=== PATIENT | male | born 1995 | race Hispanic/Latino ===

== ENCOUNTER 2019-02-14 20:58 | Observation (INO) | payer BC ==
[2019-02-14 22:53] LABS: Absolute Lymphocytes (CBC) 1.8 K/uL (0.7-4.9); Absolute Monocytes 0.4 K/uL (0.1-1.3); Absolute Neutrophil 3.6 K/uL (1.8-8.0); Basophils % 0.6 % (0-1.3); Eosinophils % 3.7 % (0-4.4); Hematocrit 43.6 % (39.6-49.0); MPV 7.5 fL (7.6-11.3); Monocytes % 6.8 % (3.3-12.3); RBC Red Blood Cell Count 4.89 M/uL (4.33-5.43)
[2019-02-14] MEDS ORDERED: FAMOTIDINE 20 MG/2 ML VIAL IV ONE (22:53)
[2019-02-14] MEDS ORDERED: NA CHLORIDE 0.9% 1,000 ML ONE (22:53)
[2019-02-14] MEDS ORDERED: ONDANSETRON 4 MG/2 ML VIAL ONE (22:53)
[2019-02-14 23:22] LABS: Urine Blood NEGATIVE (NEG); Urine Glucose NEGATIVE (NEG); Urine Protein NEGATIVE (NEG)
[2019-02-14 23:22] LABS: Urine Bacteria <20 /HPF (NONE SEEN); Urine Culture Reflex Order NOT NEEDED; Urine RBC NONE SEEN /HPF (NONE SEEN)
[2019-02-14 23:25] LABS: Albumin 4.4 g/dL (3.4-5.0); Bilirubin Direct 0.1 mg/dL (0-0.2); Bilirubin Total 0.4 mg/dL (0.2-1.0); Potassium 3.9 mmol/L (3.5-5.1)
[2019-02-15] MEDS ORDERED: KETOROLAC 30 MG/ML INJ ONE (00:11)
--- NOTE | 2019-02-15 01:25 | ER ---
Nurse's Notes [facility] Name: Karan Mccullough Age: 23 yrs Sex: Male : 1995 Arrival Date: 02/14/2019 Time: 21:04 Bed 17 Private MD: Diagnosis: Acute cholecystitis Presentation: 02/14 21:13 Presenting complaint: Patient states: abd pain X1 week. pt denies N/V/D. pt c/o lower ak1 back pain since last night. Transition of care: patient was not received from another setting of care. Onset of symptoms is unknown. Risk Assessment: Do you want to hurt yourself or someone else? Patient reports no desire to harm self or others. Initial Sepsis Screen: Does the patient meet any 2 criteria? No. Patient's initial sepsis screen is negative. Does the patient have a suspected source of infection? No. Patient's initial sepsis screen is negative. Care prior to arrival: None. 21:13 Method Of Arrival: Ambulatory ak1 21:13 Acuity: LUBNA 3 ak1 Triage Assessment: 21:15 General: Appears in no apparent distress. Behavior is calm, cooperative. Pain: ak1 Complains of pain in abdomen. EENT: No signs and/or symptoms were reported regarding the EENT system. Neuro: No deficits noted. Cardiovascular: No deficits noted. Respiratory: No deficits noted. GI: Reports lower abdominal pain, upper abdominal pain, Patient currently denies diarrhea, nausea, vomiting. : No signs and/or symptoms were reported regarding the genitourinary system. Derm: No signs and/or symptoms reported regarding the dermatologic system. Musculoskeletal: No signs and/or symptoms reported regarding the musculoskeletal system. Historical: - Allergies: 21:15 No Known Allergies; ak1 - Home Meds: 21:15 None [Active]; ak1 - PMHx: 21:15 None; ak1 - PSHx: 21:15 None; ak1 - Immunization history:: Adult Immunizations unknown. - Social history:: Smoking status: Patient/guardian denies using tobacco. - Ebola Screening: : No symptoms or risks identified at this time. Screenin:01 Abuse screen: Denies threats or abuse. Denies injuries from another. Nutritional ed1 screening: No deficits noted. Tuberculosis screening: No symptoms or risk factors identified. Fall Risk None identified. Assessment: 22:01 General: Appears in no apparent distress. Behavior is calm, cooperative. Pain: ed1 Complains of pain in abdomen Pain radiates to back Pain currently is 6 out of 10 on a pain scale. Quality of pain is described as aching, Pain began one week ago. Neuro: Level of Consciousness is awake, alert, obeys commands, Oriented to person, place, time, situation. Cardiovascular: Denies chest pain, Heart tones S1 S2 present. Respiratory: Airway is patent Respiratory effort is even, unlabored, Respiratory pattern is regular, symmetrical, Breath sounds are clear bilaterally. GI: Abdomen is non-distended, Bowel sounds present X 4 quads. Abd is soft and non tender X 4 quads. Reports lower abdominal pain, upper abdominal pain, Patient currently denies diarrhea, nausea, vomiting. : No signs and/or symptoms were reported regarding the genitourinary system. EENT: No signs and/or symptoms were reported regarding the EENT system. Derm: Skin is intact, is healthy with good turgor, Skin is dry, Skin is normal, Skin temperature is warm. Musculoskeletal: Circulation, motion, and sensation intact. Range of motion: intact in all extremities. 22:49 Reassessment: Patient appears in no apparent distress at this time. No changes from ed1 previously documented assessment. Patient and/or family updated on plan of care and expected duration. Pain level reassessed. Patient is alert, oriented x 3, equal unlabored respirations, skin warm/dry/pink. Patient states symptoms have not improved. 23:46 Reassessment: Patient appears in no apparent distress at this time. No changes from ed1 previously documented assessment. Patient and/or family updated on plan of care and expected duration. Pain level reassessed. Patient is alert, oriented x 3, equal unlabored respirations, skin warm/dry/pink. Pt reports pain has not gotten any better. Patient states symptoms have not improved. 02/15 01:38 Reassessment: Patient appears in no apparent distress at this time. Patient and/or ed1 family updated on plan of care and expected duration. Pain level reassessed. Patient is alert, oriented x 3, equal unlabored respirations, skin warm/dry/pink. Patient states symptoms have not improved. Vital Signs: 02/14 21:15 BP 127 / 86; Pulse 67; Resp 16; Temp 98.1; Pulse Ox 100% on R/A; Weight 61.23 kg (R); ak1 Height 5 ft. 5 in. (165.10 cm) (R); Pain 6/10; 22:49 BP 122 / 76; Pulse 70; Resp 18; Pulse Ox 100% on R/A; Pain 6/10; ed1 23:46 BP 125 / 73; Pulse 76; Resp 17; Pulse Ox 99% on R/A; Pain 6/10; ed1 02/15 01:38 BP 113 / 78; Pulse 54; Resp 18; Pulse Ox 99% on R/A; Pain 4/10; ed1 02/14 21:15 Body Mass Index 22.46 (61.23 kg, 165.10 cm) ak1 ED Course: 02/14 21:04 Patient arrived in ED. es 21:14 Triage completed. ak1 21:15 Arm band placed on Patient placed in waiting room, Patient notified of wait time. ak1 21:48 Natasha Parekh, RN is Primary Nurse. ed1 21:48 Markel Blount PA is PHCP. cp 21:48 Cameron Cline MD is Attending Physician. cp 22:01 Patient has correct armband on for positive identification. Bed in low position. Call ed1 light in reach. 22:36 Initial lab(s) drawn, by me, sent to lab. Inserted saline lock: 20 gauge in right ed1 antecubital area, using aseptic technique. Blood collected. 23:[address] Scan. ed1 02/15 00:[address] via wheelchair. kw1 01:00 CT Abd/Pelvis - W/Contrast: no oral contrast In Process Unspecified. EDMS 01:23 Hugo Herman MD is Hospitalizing Provider. cp 01:38 No provider procedures requiring assistance completed. Patient admitted, IV remains in ed1 place. intact, No redness/swelling at site. 07:03 Primary Nurse role handed off by Natasha Parekh RN ed1 11:43 Isaac Cordoba RN is Primary Nurse. jl7 Administered Medications: 02/14 22:50 Drug: NS 0.9% 1000 ml Route: IV; Rate: 1 bolus; Site: right antecubital; ed1 02/15 00:03 Follow up: IV Status: Completed infusion; IV Intake: 1000ml ed1 02/14 22:50 Drug: Zofran 4 mg Route: IVP; Site: right antecubital; ed1 02/15 00:04 Follow up: Response: No adverse reaction; Nausea unchanged ed1 02/14 22:50 Drug: Pepcid 20 mg Route: IVP; Site: right antecubital; ed1 02/15 00:04 Follow up: Response: No adverse reaction ed1 00:04 Drug: TORadol 30 mg Route: IVP; Site: right antecubital; ed1 00:34 Follow up: Response: No adverse reaction; Pain is decreased ed1 Intake: 00:03 IV: 1000ml; Total: 1000ml. ed1 Outcome: 01:23 Decision to Hospitalize by Provider. cp 02:00 Admitted to ER Hold. Please see [facility] for further documentation. ed1 02:00 Condition: good 02:00 Discharge instructions given to patient, Instructed on the need for admit, Demonstrated understanding of instructions. 13:26 Patient left the ED. jl7 Signatures: Dispatcher [employer] Liv Betancourt Erika, RN RN ed1 Charmaine Sequeira RN RN ak1 Markel Blount PA PA cp Leal, Jahala, RN RN jl7 Zakia Uribe1 Corrections: (The following items were deleted from the chart) 01:25 02/14 21:13 Acuity: LUBNA 4 ak1 ak1 02/15 01:39 01:38 BP 113 / 78; Pulse 54bpm; Resp 28bpm; Pulse Ox 99% RA; Pain 4/10; ed1 ed1
--- NOTE | 2019-02-15 01:25 | EDPHYS ---
Physician Documentation [facility] Name: Karan Mccullough Age: 23 yrs Sex: Male : 1995 Arrival Date: 02/14/2019 Time: 21:04 Bed 17 Private MD: ED Physician Cameron Cline HPI: 02/14 22:30 This 23 yrs old Male presents to ER via Ambulatory with complaints of cp Abdominal Pain. 22:30 The patient presents with abdominal pain in the epigastric area, in the right upper cp quadrant. Onset: The symptoms/episode began/occurred 1 week(s) ago, and became worse 2 hour(s) ago. The symptoms radiate to back. 22:30 Associated signs and symptoms: Pertinent positives: nausea, Pertinent negatives: blood cp in stools, chest pain, constipation, diarrhea, dysuria, fever, testicular pain, vomiting. The symptoms are described as sharp. 22:30 Modifying factors: the symptoms are aggravated by food, pressure. cp Historical: - Allergies: 21:15 No Known Allergies; ak1 - Home Meds: 21:15 None [Active]; ak1 - PMHx: 21:15 None; ak1 - PSHx: 21:15 None; ak1 - Immunization history:: Adult Immunizations unknown. - Social history:: Smoking status: Patient/guardian denies using tobacco. - Ebola Screening: : No symptoms or risks identified at this time. ROS: 22:35 Constitutional: Negative for body aches, chills, fever, poor PO intake. cp 22:35 Eyes: Negative for injury, pain, redness, and discharge. cp 22:35 ENT: Negative for sore throat, difficulty swallowing, difficulty handling secretions. 22:35 Cardiovascular: Negative for chest pain, palpitations. 22:35 Respiratory: Negative for cough, shortness of breath, wheezing. 22:35 Abdomen/GI: Positive for abdominal pain, Negative for vomiting, diarrhea, constipation, anorexia, black/tarry stool, rectal bleeding. 22:35 Back: Positive for radiated pain. 22:35 : Negative for urinary symptoms, testicular pain 22:35 Skin: Negative for cellulitis, rash. 22:35 Neuro: Negative for altered mental status, headache, weakness. 22:35 All other systems are negative. Exam: 22:42 Constitutional: The patient appears in no acute distress, alert, awake, non-toxic, well cp developed, well nourished. 22:42 Head/Face: Normocephalic, atraumatic. cp 22:42 Eyes: Periorbital structures: appear normal, Conjunctiva: normal, no exudate, no injection, Sclera: no appreciated abnormality, Lids and lashes: appear normal, bilaterally. 22:42 ENT: External ear(s): are unremarkable, Nose: is normal, Mouth: Lips: moist, Oral mucosa: pink and intact, moist, Posterior pharynx: Airway: no evidence of obstruction, patent, Tonsils: are normal in appearance, swelling, is not appreciated, erythema, is not appreciated, exudate, is not appreciated. 22:42 Chest/axilla: Inspection: normal, Palpation: is normal, no crepitus, no tenderness. 22:42 Cardiovascular: Rate: normal, Rhythm: regular. 22:42 Respiratory: the patient does not display signs of respiratory distress, Respirations: normal, no use of accessory muscles, no retractions, no splinting, no tachypnea, labored breathing, is not present, Breath sounds: are clear throughout, no decreased breath sounds, no stridor, no wheezing. 22:42 Abdomen/GI: Inspection: abdomen appears normal, Bowel sounds: active, all quadrants, Palpation: soft, in all quadrants, moderate abdominal tenderness, in the epigastric area and right upper quadrant, rebound tenderness, is not appreciated, voluntary guarding, is elicited in the epigastric area and right upper quadrant. 22:42 Back: pain, that is moderate, of the mid back area, ROM is normal. 22:42 Skin: cellulitis, is not appreciated, no rash present. Vital Signs: 21:15 BP 127 / 86; Pulse 67; Resp 16; Temp 98.1; Pulse Ox 100% on R/A; Weight 61.23 kg (R); ak1 Height 5 ft. 5 in. (165.10 cm) (R); Pain 6/10; 22:49 BP 122 / 76; Pulse 70; Resp 18; Pulse Ox 100% on R/A; Pain 6/10; ed1 23:46 BP 125 / 73; Pulse 76; Resp 17; Pulse Ox 99% on R/A; Pain 6/10; ed1 02/15 01:38 BP 113 / 78; Pulse 54; Resp 18; Pulse Ox 99% on R/A; Pain 4/10; ed1 02/14 21:15 Body Mass Index 22.46 (61.23 kg, 165.10 cm) ak1 MDM: 02/14 21:49 Patient medically screened. cp 23:00 Differential diagnosis: cholecystitis, Cholelithiasis, diverticulitis, gastritis, cp gastroesophageal reflux disease, pancreatitis, Peptic Ulcer Disease, Perf. Duodenal Ulcer, Perf. Gastric Ulcer, Ureterolithiasis, urinary tract infection. 02/15 01:20 Data reviewed: vital signs, nurses notes, lab test result(s), radiologic studies, CT cp scan, I have discussed the patient's presentation/case with the attending Emergency Department Physician; and as a result, I will admit patient. 01:20 Counseling: I had a detailed discussion with the patient and/or guardian regarding: the cp historical points, exam findings, and any diagnostic results supporting the discharge/admit diagnosis, lab results, radiology results, the need for further work-up and treatment in the hospital. 01:22 Physician consultation: Hugo Herman MD was called at 01:22, was contacted at 01:22, regarding admission, to the medical/surgical unit. 02/14 22:25 Order name: Basic Metabolic Panel; Complete Time: 23:27 cp 02/15 01:15 Interpretation: Normal except: CO2 33; GLUC 113; BUN 21; GFR 82. cp 02/14 22:25 Order name: CBC with Diff; Complete Time: 23:27 cp 02/15 01:17 Interpretation: Normal except: MPV 7.5. cp 02/14 22:25 Order name: Creatinine for Radiology; Complete Time: 23:27 cp 02/14 22:25 Order name: Hepatic Function; Complete Time: 23:27 cp 02/14 22:25 Order name: Lipase; Complete Time: 23:27 cp 02/14 22:25 Order name: Urine Microscopic Only; Complete Time: 23:27 cp 02/14 22:25 Order name: IV Saline Lock; Complete Time: 22:37 cp 02/14 22:54 Order name: Urine Dipstick--Ancillary (enter results); Complete Time: 23:27 ar5 02/14 23:28 Order name: CT Abd/Pelvis - W/Contrast: no oral contrast; Complete Time: 02:18 cp 02/15 08:23 Order name: US; Complete Time: 02:18 EDNV 02/14 22:25 Order name: Labs collected and sent; Complete Time: 22:37 cp 02/14 22:25 Order name: Urine Dipstick-Ancillary (obtain specimen); Complete Time: 22:50 cp 02/14 22:26 Order name: NPO; Complete Time: 22:37 cp Administered Medications: 02/14 22:50 Drug: NS 0.9% 1000 ml Route: IV; Rate: 1 bolus; Site: right antecubital; ed1 02/15 00:03 Follow up: IV Status: Completed infusion; IV Intake: 1000ml ed1 02/14 22:50 Drug: Zofran 4 mg Route: IVP; Site: right antecubital; ed1 02/15 00:04 Follow up: Response: No adverse reaction; Nausea unchanged ed1 02/14 22:50 Drug: Pepcid 20 mg Route: IVP; Site: right antecubital; ed1 02/15 00:04 Follow up: Response: No adverse reaction ed1 00:04 Drug: TORadol 30 mg Route: IVP; Site: right antecubital; ed1 00:34 Follow up: Response: No adverse reaction; Pain is decreased ed1 Disposition: 02/15/19 01:23 Hospitalization ordered by Hugo Herman for Observation. Preliminary diagnosis is Acute cholecystitis. - Bed requested for Operating Room. - Status is Observation. jl7 - Condition is Stable. - Problem is new. - Symptoms have improved. UTI on Admission? No Addendum: 02/24/2019 06:40 Co-signature as Attending Physician, Cameron Cline MD. g s Signatures: Dispatcher [employer] [facility] Elizabeth Azar RN RN mw Natasha Parekh RN RN ed1 Charmaine Sequeira RN RN ak1 Markel Blount PA PA cp Leal, Jahala, RN RN jl7 Cameron Cline MD MD Corrections: (The following items were deleted from the chart) 02/15 01:51 01:23 Hospitalization Ordered by Hugo Herman MD for Observation. Preliminary mw diagnosis is Acute cholecystitis. Bed requested for Telemetry/MedSurg (observation). Status is Observation. Condition is Stable. Problem is new. Symptoms have improved. UTI on Admission? No. cp 13:26 01:51 02/15/2019 01:23 Hospitalization Ordered by Hugo Herman MD for Observation. jl7 Preliminary diagnosis is Acute cholecystitis. Bed requested for [facility] ER HOLD. Status is Observation. Condition is Stable. Problem is new. Symptoms have improved. UTI on Admission? No. mw
--- NOTE | 2019-02-15 02:52 | P.HP ---
Certification for Inpatient Patient admitted to: Observation With expected LOS: <2 Midnights Practitioner: I am a practitioner with admitting privileges, knowledge of patient current condition, hospital course, and medical plan of care. Services: Services provided to patient in accordance with Admission requirements found in Title 42 Section 412.3 of the Code of Federal Regulations Patient History Date of Service: 02/15/19 Reason for admission: abdominal pain History of Present Illness: Mr Mccullough is a 23 years old male with pretty benign past medical history, who start about 1 week ago with intermittent upper abdominal pain. He denied any nausea, vomiting, diarrhea, fever or chills associated with. The pain is mostly at night, not related to any particular food. He came to ED tonight, because the pain was worse than before. The pain does not radiate, intensity is 6-8/10. Lab work is unremarkable. CT abd/pelvis report distended gallbladder with pericholicystic fluid around. No ductal dilation. Allergies No Known Allergies Allergy (Unverified 02/15/19 02:16) Home medications list reviewed: Yes Home Medications: NK [No Home Meds] 02/15/19 - Past Medical/Surgical History Past Medical History: Reviewed- Non-Contributory Past Surgical History: Reviewed- Non-Contributory - Family History Family History: Reviewed- Non-Contributory - Social History Smoking Status: Never smoker Alcohol use: Yes CD- Drugs: No Place of Residence: Home Review of Systems 10-point ROS is otherwise unremarkable Physical Examination - Physical Exam General: Alert, In no apparent distress HEENT: Atraumatic, PERRLA, Mucous membr. moist/pink, EOMI, Sclerae nonicteric Neck: Supple, 2+ carotid pulse no bruit, No LAD, Without JVD or thyroid abnormality Respiratory: Clear to auscultation bilaterally, Normal air movement Cardiovascular: Regular rate/rhythm, Normal S1 S2 Gastrointestinal: Normal bowel sounds, No tenderness (after receive, Toradol, abdominal exam was benign, no tenderness to palpation.) Musculoskeletal: No tenderness Integumentary: No rashes Neurological: Normal gait, Normal speech, Normal strength at 5/5 x4 extr, Normal tone, Normal affect Lymphatics: No axilla or inguinal lymphadenopathy - Studies Laboratory Data (last 24 hrs) 02/14/19 22:33: Creatinine 1.07 02/14/19 22:33: WBC 6.0, Hgb 14.8, Hct 43.6, Plt Count 320 02/14/19 22:33: Sodium 141, Potassium 3.9, BUN 21 H, Creatinine 1.10, Glucose 113 H, Total Bilirubin 0.4, AST 21, ALT 50, Alkaline Phosphatase 116, Lipase 118 Assessment and Plan - Problems (Diagnosis) (1) Abdominal pain Current Visit: Yes Status: Acute Qualifiers: Abdominal location: upper abdomen, unspecified Qualified Code(s): R10.10 - Upper abdominal pain, unspecified - Plan CT abd/pelvis shows distended and thickening gallbladder wall with pericholecystic fluid, differential diagnosis include cholecystitis, however, no fever, no N/V, normal lab work. Will admit the patient under observation to have an abdominal US. Will consult surgery team depending US result. - Advance Directives Does patient have a Living Will: No Does patient have a Durable POA for Healthcare: No - Code Status/Comfort Care Code Status Assessed: Yes Code Status: Full Code
[2019-02-15] MEDS ORDERED: NA CHLORIDE 0.9% 1,000 ML IV SCH (03:29)
[2019-02-15] MEDS ORDERED: ONDANSETRON 4 MG/2 ML VIAL IV PRN (03:29)
[2019-02-15] MEDS ORDERED: KETOROLAC 30 MG/ML INJ IV PRN (03:29)
[2019-02-15 03:32] VITALS: BMI 22.4
[2019-02-15] MEDS ORDERED: NA CHLORIDE 0.9% 1,000 ML ONE (04:48)
[2019-02-15] MEDS: CIPROFLOXACIN 400mg IV 400 MG/200 ML BAG IV SCH ×2 (05:43→09:00)
[2019-02-15] MEDS: METRONIDAZOLE 500mg IVPB 500 MG/100 ML BAG IV SCH ×2 (05:44→09:00)
[2019-02-15] MEDS ORDERED: METRONIDAZOLE 500mg IVPB 500 MG/100 ML BAG IV ONE ×2 (06:12→08:53)
--- NOTE | 2019-02-15 08:22 | RAD REPORT ---
EXAM DESCRIPTION: US - Abdomen Exam Limited - 02/15/2019 6:59 am CLINICAL HISTORY: abdominal pain COMPARISON: Abdomen Pelvis W Contrast dated 02/15/2019 FINDINGS: The gallbladder demonstrates extensive sludge and stone is present filling the gallbladder . No pericholecystic fluid or gallbladder wall thickening. The common bile duct is normal measuring 5 mm. The liver demonstrates no findings of intrahepatic biliary dilatation. IMPRESSION: Extensive sludge and stones filling the gallbladder.
--- NOTE | 2019-02-15 08:48 | P.DS ---
Admission Date: 02/15/19 Discharge Date: 02/15/19 Primary Care Provider: None Disposition: ROUTINE DISCHARGE Discharge Condition: GOOD Reason for Admission: abdominal pain Consultations: Surgery: Dr. Lincoln Procedures: ABUS: COMPARISON: Abdomen Pelvis W Contrast dated 02/15/2019 FINDINGS: The gallbladder demonstrates extensive sludge and stone is present filling the gallbladder. No pericholecystic fluid or gallbladder wall thickening. The common bile duct is normal measuring 5 mm. The liver demonstrates no findings of intrahepatic biliary dilatation. IMPRESSION: Extensive sludge and stones filling the gallbladder. Medical problem list: Right upper quadrant abdominal pain secondary to Cholelithiasis Brief History of Present Illness: 23 year old male presented to the emergency room with right upper quadrant pain, nausea and vomiting. CT scan shows some leigh cholecystic fluid with possible stone. Patient admitted for further evaluation. Hospital Course: Patient presents with right upper quadrant abdominal pain, nausea and vomiting. Abdominal ultrasound shows Vital Signs/Physical Exam: Temp Pulse Resp BP Pulse Ox 97.2 F 69 15 109/74 99 02/15/19 04:00 02/15/19 04:00 02/15/19 04:00 02/15/19 04:00 02/15/19 04:00 Laboratory Data at Discharge: WBC 6.0 K/uL (4.3-10.9) 02/14/19 22:33 Hgb 14.8 g/dL (13.6-17.9) 02/14/19 22:33 Hct 43.6 % (39.6-49.0) 02/14/19 22:33 Plt Count 320 K/uL (152-406) 02/14/19 22:33 Sodium 141 mmol/L (136-145) 02/14/19 22:33 Potassium 3.9 mmol/L (3.5-5.1) 02/14/19 22:33 BUN 21 mg/dL (7-18) H 02/14/19 22:33 Creatinine 1.10 mg/dL (0.55-1.3) 02/14/19 22:33 Glucose 113 mg/dL (74-106) H 02/14/19 22:33 Total Bilirubin 0.4 mg/dL (0.2-1.0) 02/14/19 22:33 AST 21 U/L (15-37) 02/14/19 22:33 ALT 50 U/L (12-78) 02/14/19 22:33 Alkaline Phosphatase 116 U/L (45-117) 02/14/19 22:33 Lipase 118 U/L (73-393) 02/14/19 22:33 Home Medications: NK [No Home Meds] 02/15/19
--- NOTE | 2019-02-15 08:51 | P.PN ---
Subjective Date of Service: 02/15/19 Primary Care Provider: None Chief Complaint: abdominal pain Subjective: Other (Right upper quadrant pain improved.) Physical Examination - Vital Signs Temperature: 97.2 F Blood Pressure: 109/74 Pulse: 69 Respirations: 15 Pulse Ox (%): 99 - Physical Exam General: Alert, In no apparent distress, Oriented x3, Cooperative HEENT: Atraumatic Neck: Supple Respiratory: Clear to auscultation bilaterally, Normal air movement Cardiovascular: Normal pulses, Regular rate/rhythm Gastrointestinal: Normal bowel sounds, Soft and benign, Non-distended, No tenderness, No masses, No rebound, No guarding Musculoskeletal: No erythema, No tenderness, No warmth Integumentary: No tenderness/swelling, No erythema, No warmth, No cyanosis Neurological: Normal speech, Normal strength at 5/5 x4 extr, Normal tone, Normal affect - Studies Laboratory Data (last 24 hrs) 02/14/19 22:33: Creatinine 1.07 02/14/19 22:33: WBC 6.0, Hgb 14.8, Hct 43.6, Plt Count 320 02/14/19 22:33: Sodium 141, Potassium 3.9, BUN 21 H, Creatinine 1.10, Glucose 113 H, Total Bilirubin 0.4, AST 21, ALT 50, Alkaline Phosphatase 116, Lipase 118 Medications List Reviewed: Yes Assessment & Plan Discharge Plan: Home Plan to discharge in: 24 Hours Physician Review Additional Text: Impression: Right upper quadrant abdominal pain with nausea and vomiting secondary to acute cholecystitis with cholelithiasis Plan: Case discussed with surgery. Since the patient has been having pain for almost a week. Patient likely requires intervention. Abdominal ultrasound shows increased sludge with gallstone. Common bile duct appears normal. Surgery will keep the patient NPO and proceed with surgical intervention today. Anticipate discharge in the next 24 hr. Time Spent Managing Pts Care (In Minutes): 55
[2019-02-15] MEDS ORDERED: CIPROFLOXACIN 400mg IV 400 MG/200 ML BAG IV ONE (08:53)
[2019-02-15] MEDS ORDERED: INFLUENZA VACCINE (for 3y+) 0.5 ML DOSE IMVAC ONE ×2 (09:00→10:40)
--- NOTE | 2019-02-15 10:51 | RAD REPORT ---
EXAM DESCRIPTION: CT Abdomen and Pelvis With Intravenous Contrast CLINICAL HISTORY: The patient is 23 years old and is Male; ABD PAIN TECHNIQUE: Axial computed tomography images of the abdomen and pelvis with intravenous contrast. S agittal and coronal reformatted images were created and reviewed. This CT exam was performed using one or more of the following dose reduction techniques: automated exposure control, adjustment of t he mA and/or kV according to patient size, and/or use of iterative reconstruction technique. COMPARISON: None. FINDINGS: LUNG BASES: Lung bases are clear. HEART: Visualized heart is unremarkable. ABDOMEN: LIVER: Unremarkable. No mass. GALLBLADDER AND BILE DUCTS: Mild gallbladder distention with small amount of pericholecystic fluid . Suggestion of gallbladder wall thickening on coronal view. No intraluminal stone. No ductal dilation. PANCREAS: Unremarkable. No mass. No ductal dilation. SPLEEN: Unremarkable. No splenomegaly. ADRENALS: Unremarkable. No mass. KIDNEYS AND URETERS: Unremarkable. No solid mass. No hydronephrosis. STOMACH AND BOWEL: Unremarkable. No obstruction. No mucosal thickening. PELVIS: APPENDIX: The appendix is seen and is within normal limits. BLADDER: Unremarkable. No mass. REPRODUCTIVE: Unremarkable as visualized. ABDOMEN and PELVIS: INTRAPERITONEAL SPACE: Unremarkable. No free air. No significant fluid collection. BONES/JOINTS: No acute fracture. No dislocation. SOFT TISSUES: Small fat-containing of apical hernia. VASCULATURE: Unremarkable. No abdominal aortic aneurysm. LYMPH NODES: Unremarkable. No enlarged lymph nodes. IMPRESSION: Gallbladder distention with suggestion of gallbladder wall thickening and small amount o f pericholecystic fluid. Constellation of findings could be secondary to acute cholecystitis. Further evaluation with right upper quadrant ultrasound is recommended. Electronically signed by: Malik Bonilla DO 02/15/2019 1:05 AM CDT Due to temporary technical issues with the PACS/Fluency reporting system, reports are being signed by the in house radiologist as a courtesy to ensure prompt reporting. The interpreting radiologist is janet diaz responsible for the content of the report.
[2019-02-15] MEDS ORDERED: Ringers Lactate 1,000 ML IV ONE ×2 (13:06→15:12)
[2019-02-15] MEDS ORDERED: BUPIVACAINE 0.5% PF 10 ML VIAL ONE (13:48)
[2019-02-15] MEDS ORDERED: GLYCOPYRROLATE 0.2 MG/ML SYR ONE (14:15)
[2019-02-15] MEDS ORDERED: MIDAZOLAM HCL 2 MG/2 ML INJ ONE (14:15)
[2019-02-15] MEDS ORDERED: PROPOFOL 200 MG/20 ML VIAL IV ONE (14:15)
[2019-02-15] MEDS ORDERED: LIDOCAINE 2% MPF 5 ML VIAL ONE (14:16)
[2019-02-15] MEDS ORDERED: FENTANYL CITR 250 MCG/5 ML ONE (14:16)
[2019-02-15] MEDS ORDERED: CEFOXITIN/SWI 1gm 1 GM/10 ML SYR IVP ONE (14:45)
[2019-02-15] MEDS ORDERED: CEFOXITIN SODIUM 1 GM/VIAL IVPB SCH (15:00)
[2019-02-15] MEDS ORDERED: CEFOXITIN/SWI 1gm 1 GM/10 ML SYR IV SCH (15:00)
[2019-02-15] MEDS ORDERED: NEOSTIGMINE 1 MG/ML -10 ML VIAL ONE (15:18)
[2019-02-15] MEDS ORDERED: ONDANSETRON 4 MG/2 ML VIAL ONE ×2 (15:18→17:09)
--- NOTE | 2019-02-15 15:25 | P.OP ---
A&P Technician: Mitchell JIMENEZ Preoperative diagnosis: Acute Cholecystitis and Cholelithiasis Postoperative diagnosis: same Primary procedure: Lap Vicky Anesthesia: General Estimated blood loss: min Specimen: gb Findings: as above Complications: None Transferred to: Recovery Room Condition: Good
[2019-02-15] MEDS ORDERED: ROCURONIUM 50 MG/5 ML VIAL IV ONE (15:27)
--- NOTE | 2019-02-15 15:57 | P.DS ---
Admission Date: 02/15/19 Discharge Date: 02/15/19 Primary Care Provider: None Disposition: ROUTINE DISCHARGE Discharge Condition: GOOD Reason for Admission: abdominal pain Consultations: Surgery-Dr. Lincoln Procedures: Surgery: Laparoscopic cholecystectomy Medical problem list: Right upper quadrant pain secondary to acute cholecystitis and cholelithiasis Brief History of Present Illness: 23 year old male presented to the emergency room with right upper quadrant pain, nausea and vomiting. CT scan shows some leigh cholecystic fluid with possible stone. Patient admitted for further evaluation. Hospital Course: Patient presented with right upper quadrant pain, nausea and vomiting. Symptoms had been present for almost a week. Patient evaluated in the emergency room. Patient found to have gallstones with increased sludge. Patient seen and evaluated by surgery. Surgical intervention was recommended. Patient had laparoscopic cholecystectomy. Procedure went well. Patient was discharged after surgery. Patient will follow up with surgery to further monitor and address. Instructions given by surgery. Vital Signs/Physical Exam: Temp Pulse Resp BP Pulse Ox 97.3 F 85 16 122/80 99 02/15/19 15:48 02/15/19 15:48 02/15/19 15:48 02/15/19 15:48 02/15/19 08:51 General: Alert, In no apparent distress, Oriented x3, Cooperative HEENT: Atraumatic Neck: Supple Respiratory: Clear to auscultation bilaterally, Normal air movement Cardiovascular: Normal pulses, Regular rate/rhythm Gastrointestinal: Normal bowel sounds, Soft and benign, Non-distended Integumentary: No erythema, No warmth, No cyanosis Neurological: Normal speech, Normal strength at 5/5 x4 extr, Normal tone, Normal affect Laboratory Data at Discharge: WBC 6.0 K/uL (4.3-10.9) 02/14/19 22:33 Hgb 14.8 g/dL (13.6-17.9) 02/14/19 22:33 Hct 43.6 % (39.6-49.0) 02/14/19 22:33 Plt Count 320 K/uL (152-406) 02/14/19 22:33 Sodium 141 mmol/L (136-145) 02/14/19 22:33 Potassium 3.9 mmol/L (3.5-5.1) 02/14/19 22:33 BUN 21 mg/dL (7-18) H 02/14/19 22:33 Creatinine 1.10 mg/dL (0.55-1.3) 02/14/19 22:33 Glucose 113 mg/dL (74-106) H 02/14/19 22:33 Total Bilirubin 0.4 mg/dL (0.2-1.0) 02/14/19 22:33 AST 21 U/L (15-37) 02/14/19 22:33 ALT 50 U/L (12-78) 02/14/19 22:33 Alkaline Phosphatase 116 U/L (45-117) 02/14/19 22:33 Lipase 118 U/L (73-393) 02/14/19 22:33 Home Medications: NK [No Home Meds] 02/15/19 Patient Discharge Instructions: 1. Patient will follow up with surgery as directed. 2. Instructions on postoperative care will be provided. 3. Patient may shower on . Patient to keep wound clean and dry. Diet: Regular Activity: No lifting more than 10 lbs Followup: Eduardo Lincoln MD [ACTIVE - CAN ADMIT] - 1 Week Time spent managing pt's care (in minutes): 55
[2019-02-15 16:00] VITALS: O2SAT 100
[2019-02-15] MEDS ORDERED: HYDROMORPHONE HCL 1 MG/ML INJ ONE (16:02)
--- NOTE | 2019-02-15 16:25 | PREOPCON ---
Date of Consultation: 02/15/2019 Reason: Abdominal pain. History Of Present Illness: The patient is a 23-year-old gentleman who comes in with a 1-week histor y of biliary colic with epigastric right upper quadrant abdominal pain, occasionally postprandial, no t always. No nausea or vomiting. No diarrhea or constipation. Pain became severe, he came to the E [facility], was admitted and I was consulted. He is awake, alert, feels better now. No sore throat, runny no se, cough, headaches, or dizziness. No history of jaundice. No fever or chills. No chest pain. Review of Systems: Otherwise unremarkable. Past Medical History: Negative. Past Surgical History: Negative. Allergies: NO ALLERGIES. Social History: Does not smoke. Drinks occasionally. Family History: Noncontributory. Physical Examination: Vital Signs: Stable. He is afebrile. General: He is awake, alert, oriented x3. HEAD AND NECK: Cranial nerves 2 through 12 grossly within normal limits. No neck masses. No JVD. Throat clear. Neck supple. Chest: Clear. Heart: S1, S2. Abdomen: Soft, nondistended. Positive bowel sounds. Minimal right upper quadrant tenderness. No r ebound, rigidity, or guarding. Extremities: Adequately perfused. Nontender. Neuro: Nonfocal. Diagnostic Data: CT of the abdomen and pelvis reviewed. CT shows pericholecystic fluid and gallblad garrick wall thickening and ultrasound shows extensive sludge and stones filling the gallbladder. His LF Ts, amylase, lipase are normal and white count is normal. Assessment: Acute cholecystitis and cholelithiasis. Plan: Admit, n.p.o., IV fluid, IV antibiotic, to the OR for lap choly, possible open. The patient u nderstands the risks, benefits, and alternatives and agrees to procedure. /MODL Voice ID: [id number] Report ID: [id number]
[2019-02-15] MEDS ORDERED: CODEINE 30MG/APAP 300MG TAB ONE (17:08)
[2019-02-15 18:06] VITALS: BP 110/67
[2019-02-15 18:56] VITALS: TEMP 97.6
--- NOTE | 2019-02-16 02:07 | OP ---
Date of Procedure: 02/15/2019 Surgeon: Eduardo Lincoln MD Ui Engineer: TONY Harris. Preoperative Diagnosis: Acute cholecystitis and cholelithiasis. Postoperative Diagnosis: Acute cholecystitis and cholelithiasis. Procedure: Laparoscopic cholecystectomy. Estimated Blood Loss: Minimal. Specimen: Gallbladder. Findings: As above. Anesthesia: General. Complication: None. Disposition: The patient tolerated the procedure in stable condition and was taken to Recovery in go od general condition. Procedure In Detail: The patient was brought to the OR and placed in supine position. General anest hesia was begun. The patient was prepped and draped in usual sterile fashion. Marcaine 0.5% was inf iltrated locally. A 15-blade was used to make a 1 cm supraumbilical midline incision. Subcutaneous tissue was divided. The fascia was identified and divided. A #1 Vicryl stay suture was placed. Per itoneal cavity was entered with sharp and blunt dissection. A 12-mm trocar was placed into the perit tobias cavity under direct vision. The pneumoperitoneum was established and then three 5-mm trocars w ere placed, one in the epigastrium, just to the right of midline and two in the right subcostal regio n. Laparoscopy revealed chronic inflammation of the gallbladder with omental adhesions. Fundus retr acted superiorly. Infundibulum was identified and retracted inferolaterally and adhesions taken down with sharp and blunt dissection. Bleeding was controlled with cautery. Then, blunt dissection was used to identify the cystic duct and cystic artery. Clips were placed. Both structures were divided . Cautery was used to remove the gallbladder from the liver bed. Bleeding on the liver bed was cont rolled with cautery. The gallbladder was retrieved through the umbilicus via an EndoCatch bag. The right upper quadrant was examined and no evidence of bleeding or bile leakage appreciated. Subsequen tly, all trocars were removed under direct vision. Stay sutures were tied to each other to reapproxi mate the fascial defect. Subcutaneous wounds were irrigated, bleeding controlled with cautery. A 3- 0 chromic was used for reapproximate the subcutaneous tissue and yolis used to close skin. Sterile dressing was applied. The patient was awakened and taken to Recovery in good general condition. PAM/GABI Voice ID: [id number] Report ID: [id number]
== END 2019-02-15 18:47 | disposition home or self-care (01) ==
LOC: ER 20:58 → ERHOLD 02-15 02:37
PROVIDERS: ADMIT Internal Medicine; ATTEND Internal Medicine
PROC: 0FT44ZZ Resection of Gallbladder, Percutaneous Endoscopic Approach (ICD-10-PCS; principal; 2019-02-15 14:45)
DX: K80.00 Calculus of gallbladder with acute cholecystitis without obstruction (principal); Z23 Encounter for immunization; Z88.0 Allergy status to penicillin
CPT/HCPCS: 36415; 74177; 76705; 80048; 80076; 81003; 81015; 83690; 85025; 88304; 96361; 96374; 96375; 99285; G0008; G0378; J0744; J1170; J2250; J2405; J2704; J2710; J3010; J7030; Q2035; Q9967